=== PATIENT | male | born 1965 | race Caucasian/White ===

== ENCOUNTER 2016-12-25 14:54 | Emergency (ER) | payer SELFPAY ==
--- OUTSIDE RECORDS SUMMARY | 2016-12-25 14:57 | XMS | Clinical Summary ---
:1965 Author Organization [facility] Address [address] [place] [address] Phone Care Team Providers Name Role Phone , Primary Care Provider Unavailable Allergies Not on File Current Medications Not on file Active Problems Not on file Social History Tobacco Use Types Packs/Day Years Used Date Never Assessed Sex Assigned at Date Recorded Not on file Last Filed Vital Signs Not on file Plan of Treatment Not on file Results Not on filefrom Last 3 Months
== END 2016-12-25 15:37 | disposition home or self-care (01) ==
LOC: SCSER 14:54
DX: F32.9 Major depressive disorder, single episode, unspecified (principal); J01.90 Acute sinusitis, unspecified; J45.909 Unspecified asthma, uncomplicated; K21.9 Gastro-esophageal reflux disease without esophagitis; E78.5 Hyperlipidemia, unspecified; I10 Essential (primary) hypertension; M10.9 Gout, unspecified; F41.9 Anxiety disorder, unspecified; Z87.891 Personal history of nicotine dependence; Z79.899 Other long term (current) drug therapy
CPT/HCPCS: 99283

== ENCOUNTER 2017-01-07 13:37 | Emergency (ER) | payer SELFPAY | END 2017-01-07 14:03 | disposition home or self-care (01) | LOC: SCSER 13:37 | DX: M10.9 Gout, unspecified (principal); K21.9 Gastro-esophageal reflux disease without esophagitis; E78.5 Hyperlipidemia, unspecified; I10 Essential (primary) hypertension; J45.909 Unspecified asthma, uncomplicated; F41.9 Anxiety disorder, unspecified; F32.9 Major depressive disorder, single episode, unspecified; Z87.891 Personal history of nicotine dependence | CPT/HCPCS: 99283 ==

== ENCOUNTER 2017-01-18 03:25 | Emergency (ER) | payer SELFPAY ==
[2017-01-18] MEDS ORDERED: Pantoprazole 40 MG VIAL ONE (03:46)
[2017-01-18] MEDS ORDERED: Ondansetron HCl/PF 4 MG/2 ML Vial ONE (03:46)
[2017-01-18] MEDS ORDERED: Lorazepam 2 MG/ML VIAL ONE ×2 (03:46→04:07)
[2017-01-18 04:00] LABS: #Basophils 0.2 thou/uL (0.0-0.2); #Lymphocytes 2.1 thou/uL (1.20-3.40); #Monocytes 0.7 thou/uL (0.11-0.59); #Neutrophils 7.3 thou/uL (1.40-6.50); %Basophils 1.5 % (0.0-1.0); %Eosinophils 0.1 % (0.0-10.0); %Lymphocytes 20.8 % (21.0-51.0); %Monocytes 6.6 % (0.0-10.0); Hematocrit 47.2 % (42.0-52.0); Mean Platelet Volume 6.3 fL (7.4-10.4); Red Blood Cell (RBC) Count 4.99 mill/uL (4.70-6.10); White Blood Cell (WBC) Count 10.3 thou/uL (4.8-10.8)
[2017-01-18 04:21] LABS: ALT (SGPT) 69 U/L (8-55); AST (SGOT) 66 U/L (5-34); Acetaminophen Less than 6.0 mcg/mL (10.0-30.0); Alkaline Phosphatase 96 U/L (40-150); Anion Gap 30 mmol/L (10-20); BUN (Urea Nitrogen) 8 mg/dL (8.9-20.6); Bilirubin, Total 0.7 mg/dL (0.2-1.2); Calc. Creatinine Clearance 0 mL/min (70-130); Carbon Dioxide 14 mmol/L (22-29); Chloride 101 mmol/L (98-107); Estimated GFR-MDRD 71; Globulin 4.3 g/dL (2.4-3.5); Protein, Total 8.3 g/dL (6.0-8.3); Salicylate Less than 8.0 mg/dL (15.0-30.0)
[2017-01-18 04:22] LABS: Troponin I Less than 0.010 ng/mL (< 0.028)
[2017-01-18 05:10] LABS: Bilirubin Negative (Negative); Blood, Urine Negative (Negative); Glucose, Urine (Dipstick) Negative (Negative); Ketone, Urine 80 mg/dL (Negative); Nitrite Negative (Negative); Protein, Urine (Dipstick) Negative (Neg-Trace); Urobilinogen 0.2 mg/dL (0.2-1.0)
[2017-01-18 05:19] LABS: Amphetamine Not Detected (NotDetected); Methadone Not Detected (NotDetected); Methamphetamine Not Detected (NotDetected)
[2017-01-18] MEDS ORDERED: Lidocaine Viscous Sol 2% 15 ml UD Cup ONE (05:54)
[2017-01-18] MEDS ORDERED: Mag-Al Plus 1200 MG/1200 MG/120 MG/30 ML UDCUP ONE (05:54)
[2017-01-18] MEDS ORDERED: Iopamidol 370 76% 100 ML VIAL ONE (09:00)
--- NOTE | 2017-01-18 09:02 | CT ---
PRELIMINARY REPORT/[facility]/EMERGENCY AFTER HOURS PROCEDURE: EXAM: CT Abdomen and Pelvis With Intravenous Contrast EXAM DATE/TIME: Exam ordered 01/18/2017 4:21 AM CLINICAL HISTORY: 51 years old, male; Pain; Abdominal pain; Epigastric; Patient HX: Epigastric pain and nausea, hs of chronic alcoholism. Left hip replmt 3 years ago TECHNIQUE: Axial computed tomography images of the abdomen and pelvis with intravenous contrast. All CT scans a t this facility use one or more dose reduction techniques, viz.: automated exposure control; ma/kV a djustment per patient size (including targeted exams where dose is matched to indication; i.e. head) ; or iterative reconstruction technique. Coronal reformatted images were created and reviewed. CONTRAST: 90 mL of isovue 370 administered intravenously. COMPARISON: No relevant prior studies available. FINDINGS: Lower thorax: Small hiatal hernia. ABDOMEN: Liver: Hepatic steatosis. Gallbladder and bile ducts: Unremarkable. No calcified stones. No ductal dilation. Pancreas: Unremarkable. No mass. No ductal dilation. Spleen: Unremarkable. No splenomegaly. Adrenals: Unremarkable. No mass. Kidneys and ureters: Unremarkable. No solid mass. No hydronephrosis. Stomach and bowel: Colonic diverticulosis. No diverticulitis. No obstruction. Appendix: Normal appendix. PELVIS: Bladder: Unremarkable. No mass. Reproductive: Unremarkable as visualized. ABDOMEN and PELVIS: Intraperitoneal space: Unremarkable. No free air. No significant fluid collection. Bones/joints: Left hip prosthesis. No acute fracture. No dislocation. Soft tissues: Bilateral fat containing inguinal hernias. Vasculature: Unremarkable. No abdominal aortic aneurysm. Lymph nodes: Unremarkable. No enlarged lymph nodes. IMPRESSION: No acute findings. Thank you for allowing us to participate in the care of your patient. Dictated and Authenticated by: Bruce Vigil MD 01/18/2017 5:01 AM Central Time ([place] \T\ [place]) FINAL REPORT CT ABDOMEN AND PELVIS WITH IV CONTRAST: Date: 01/18/17 FINDINGS/IMPRESSION: I agree with the preliminary report given by Dr. Bruce Vigil of [facility]. There are a couple of tiny, nonobstructing right renal calculi. Tiny low density lesion in the right kidney likely represents a cyst. There is a 14.0 mm focal area of slightly increased attenuation in the superior pole of the right kidney. This may be due to an infection. Correlation with urinalysis is recommended. Further evaluation with CT scan using the renal mass protocol is recommended to exc lude mass. CODE T. POS: [facility]
--- OUTSIDE RECORDS SUMMARY | 2017-01-20 14:30 | XMS | Clinical Summary ---
:[address] [facility] Address [address] [place] [address] Phone Care Team Providers Name Role Phone [...]
--- NOTE | 2017-01-21 14:08 | EKG ---
Test Reason : Blood Pressure : / mmHG Vent. Rate : 089 BPM Atrial Rate : 097 BPM P-R Int : 144 ms QRS Dur : 084 ms QT Int : 484 ms P-R-T Axes : 036 -15 042 degrees QTc Int : 588 ms Normal sinus rhythm Prolonged QT ST depression changes Abnormal ECG Confirmed by WAYNE SHERIDAN D.O. ([id number]), proposal editor BRODY LARA ([id number]) on 01/21/2017 2:08:38 PM Referred By: Confirmed By:WAYNE SHERIDAN D.O.
== END 2017-01-18 08:10 | disposition home or self-care (01) ==
LOC: SCSER 03:25
DX: K29.00 Acute gastritis without bleeding (principal); L02.212 Cutaneous abscess of back [any part, except buttock and flank]; K21.9 Gastro-esophageal reflux disease without esophagitis; E78.5 Hyperlipidemia, unspecified; I10 Essential (primary) hypertension; J45.909 Unspecified asthma, uncomplicated; M10.9 Gout, unspecified; F41.9 Anxiety disorder, unspecified; F32.9 Major depressive disorder, single episode, unspecified; Z87.891 Personal history of nicotine dependence
CPT/HCPCS: 10060; 74177; 80053; 80306; 80307; 81003; 82550; 82553; 83690; 84484; 85025; 93005; 96361; 96374; 96375; C9113; J2060; J2405

== ENCOUNTER 2017-01-20 11:28 | Emergency (ER) | payer SELFPAY ==
--- OUTSIDE RECORDS SUMMARY | 2017-01-21 19:13 | XMS | Clinical Summary ---
:1965 Author Organization [facility] Address [address] [place] [address] Phone Care Team Providers Name Role Phone [...]
== END 2017-01-20 12:30 | disposition home or self-care (01) ==
LOC: SCSER 11:28
DX: Z48.817 Encounter for surgical aftercare following surgery on the skin and subcutaneous tissue (principal); Z48.01 Encounter for change or removal of surgical wound dressing; K21.9 Gastro-esophageal reflux disease without esophagitis; E78.5 Hyperlipidemia, unspecified; I10 Essential (primary) hypertension; J45.909 Unspecified asthma, uncomplicated; F41.9 Anxiety disorder, unspecified; F32.9 Major depressive disorder, single episode, unspecified; Z87.891 Personal history of nicotine dependence; Z79.899 Other long term (current) drug therapy
CPT/HCPCS: 99282

== ENCOUNTER 2017-01-23 10:38 | Emergency (ER) | payer SELFPAY ==
--- OUTSIDE RECORDS SUMMARY | 2017-01-23 10:42 | XMS | Clinical Summary ---
:1965 Author Organization [facility] Address [address] [place] [address] Phone Care Team Providers Name Role Phone [...]
== END 2017-01-23 11:24 | disposition home or self-care (01) ==
LOC: SCSER 10:38
DX: Z48.817 Encounter for surgical aftercare following surgery on the skin and subcutaneous tissue (principal); Z48.01 Encounter for change or removal of surgical wound dressing; K21.9 Gastro-esophageal reflux disease without esophagitis; E78.5 Hyperlipidemia, unspecified; F32.9 Major depressive disorder, single episode, unspecified; F41.9 Anxiety disorder, unspecified; I10 Essential (primary) hypertension; J45.909 Unspecified asthma, uncomplicated; M10.9 Gout, unspecified; Z87.891 Personal history of nicotine dependence; Z79.899 Other long term (current) drug therapy
CPT/HCPCS: 99282

== ENCOUNTER 2017-05-10 07:26 | Emergency (ER) | payer SELFPAY ==
[2017-05-10] MEDS ORDERED: Lorazepam 2 MG/ML VIAL ONE (07:53)
[2017-05-10 08:12] LABS: Hemoglobin 14.5 g/dL (14.0-18.0); Mean Corpuscular HGB CONC 35.3 g/dL (32.0-36.0); Mean Corpuscular Hemoglobin 31.6 pg (27.0-31.0); Mean Corpuscular Volume 89.5 fl (80.0-94.0); Mean Platelet Volume 5.8 fL (7.4-10.4); Platelet Count 202 thou/uL (130-400); RBC Distribution Width 11.3 % (11.5-14.5); Red Blood Cell (RBC) Count 4.58 mill/uL (4.70-6.10); White Blood Cell (WBC) Count 4.3 thou/uL (4.8-10.8)
[2017-05-10 08:18] LABS: ALT (SGPT) 65 U/L (8-55); AST (SGOT) 74 U/L (5-34); Albumin 4.4 g/dL (3.5-5.0); Alkaline Phosphatase 93 U/L (40-150); Anion Gap 26 mmol/L (10-20); BUN (Urea Nitrogen) 10 mg/dL (8.9-20.6); Calc. Creatinine Clearance 0 mL/min (70-130); Calcium 9.6 mg/dL (7.8-10.44); Carbon Dioxide 21 mmol/L (22-29); Chloride 100 mmol/L (98-107); Estimated GFR-MDRD 66; Globulin 3.5 g/dL (2.4-3.5); Glucose 115 mg/dL (70-105); Lipase 69 U/L (8-78); Potassium 3.5 mmol/L (3.5-5.1); Protein, Total 7.9 g/dL (6.0-8.3); Sodium 143 mmol/L (136-145)
[2017-05-10 08:30] LABS: Band 1 % (5-11); Lymphocytes 51 % (21-51); MDiff Complete? YES; Monocytes 12 % (0-10); Neutrophil 35 % (42-75); PLT Morphology Comment Appears Adequate; RBC Morphology Normal; Reactive Lymphocytes 1 % (0-10)
[2017-05-10] MEDS ORDERED: Morphine 10 MG/ML VIAL ONE (08:49)
== END 2017-05-10 12:12 | disposition home or self-care (01) ==
LOC: SCSER 07:26
DX: F10.239 Alcohol dependence with withdrawal, unspecified (principal); K21.9 Gastro-esophageal reflux disease without esophagitis; E78.5 Hyperlipidemia, unspecified; I10 Essential (primary) hypertension; J45.909 Unspecified asthma, uncomplicated; M10.9 Gout, unspecified; F41.9 Anxiety disorder, unspecified; F32.9 Major depressive disorder, single episode, unspecified; Z87.891 Personal history of nicotine dependence; Z79.899 Other long term (current) drug therapy
CPT/HCPCS: 80053; 83690; 85025; 96361; 96374; J2060; J2270